=== PATIENT | female | born 1965 ===

== ENCOUNTER 2020-08-19 09:15 | Outpatient (CLI) | payer OTHER | END 2020-08-19 09:20 | disposition home or self-care (01) | LOC: PPH VACUNA 09:15 | DX: Z23 Encounter for immunization (principal) ==

== ENCOUNTER 2021-10-17 07:50 | Outpatient (CLI) | payer OTHER | END 2021-10-17 08:04 | disposition home or self-care (01) | LOC: MAMO-SONO 07:50 → TOM 07:50 → MAMO-SONO 08:04 | PROVIDERS: ATTEND Specialist | DX: Z12.31 Encounter for screening mammogram for malignant neoplasm of breast (principal); N63.0 Unspecified lump in unspecified breast; E04.9 Nontoxic goiter, unspecified; R10.2 Pelvic and perineal pain ==

== ENCOUNTER 2022-01-11 08:50 | Outpatient (CLI) | payer OTHER | END 2022-01-11 08:54 | disposition home or self-care (01) | LOC: SONOGRAMA 08:50 | PROVIDERS: ATTEND Pathology Anatomic Pathology & Clinical Pathology | DX: E04.2 Nontoxic multinodular goiter (principal) ==

== ENCOUNTER 2022-07-23 18:52 | Emergency (ER) | payer OTHER ==
[~2022-07-23] VITALS: Ht 162.6 cm; Wt 93.9 kg
[2022-07-23] MEDS ORDERED: LIPITOR40 M1 (19:17)
[2022-07-23] MEDS ORDERED: ADULT LOW DOSE81 M1 PO (19:17)
[2022-07-23] MEDS ORDERED: NORVASC2.5 MG (19:17)
== END 2022-07-24 00:07 | disposition home or self-care (01) ==
LOC: ER 18:52
DX: R10.12 Left upper quadrant pain (principal); K56.41 Fecal impaction; Z91.013 Allergy to seafood

== ENCOUNTER 2022-11-09 10:00 | Outpatient (CLI) | payer OTHER ==
[~2022-11-09 10:00] MED LIST: ADULT LOW DOSE81 M1 PO; LIPITOR40 M1; NORVASC2.5 MG
== END 2022-11-09 10:04 | disposition home or self-care (01) ==
LOC: SONOGRAMA 10:00
DX: E04.2 Nontoxic multinodular goiter (principal)

== ENCOUNTER 2022-11-09 10:59 | Outpatient (CLI) | payer OTHER | END 2022-11-09 11:00 | disposition home or self-care (01) | LOC: LAB 10:59 | PROVIDERS: ATTEND Internal Medicine | DX: E03.9 Hypothyroidism, unspecified (principal); E11.9 Type 2 diabetes mellitus without complications; E78.2 Mixed hyperlipidemia; I11.9 Hypertensive heart disease without heart failure ==

== ENCOUNTER 2022-11-22 13:11 | Outpatient (CLI) | payer OTHER | END 2022-11-22 13:27 | disposition home or self-care (01) | LOC: MAMO-SONO 13:11 | PROVIDERS: ATTEND Specialist | DX: Z12.31 Encounter for screening mammogram for malignant neoplasm of breast (principal); N63.0 Unspecified lump in unspecified breast ==